=== PATIENT | male | born 1960 | race Caucasian/White ===

== ENCOUNTER → 2017-10-30 | Day surgery (SDC) | payer BC ==
[~2017-10-30] MED LIST: Lactated Ringers 1,000 ML IV SCH
== END ==
LOC: FB.SDS 07:06
PROVIDERS: ATTEND Surgery
DX: Z12.11 Encounter for screening for malignant neoplasm of colon (principal); Z53.8 Procedure and treatment not carried out for other reasons; Z88.8 Allergy status to other drugs, medicaments and biological substances; Z91.040 Latex allergy status

== ENCOUNTER 2017-10-31 06:26 | Day surgery (SDC) | payer BC ==
[2017-10-31] MEDS ORDERED: Lactated Ringers 1,000 ML IV SCH (06:30)
[2017-10-31] MEDS ORDERED: Midazolam 1 MG/ML 2 ML SDV IV ONE (07:20)
[2017-10-31] MEDS ORDERED: Propofol 200 MG/20 ML SDV IV ONE (07:20)
--- NOTE | 2017-10-31 08:00 | PCM.OPNOTE ---
- General Post-Op/Procedure Note Date of Surgery/Procedure: 10/31/17 Operative Procedure(s): c scope Findings: normal exam Pre Op Diagnosis: history of UC Post-Op Diagnosis: Same Anesthesia Technique: MAC Primary Surgeon: Don Ruvalcaba Anesthesia Provider: Kerrie Green Pathology: bx every 10 cm Complications: None Condition: Good Free Text/Narrative:: see dictation
[2017-10-31 08:44] VITALS: BP 115/43
--- NOTE | 2017-10-31 10:13 | OR ---
DATE OF OPERATION: 10/31/2017 SURGEON: Don Ruvalcaba MD PROCEDURE PERFORMED: Colonoscopy with biopsy. PREOPERATIVE DIAGNOSIS: History of ulcerative colitis. POSTOPERATIVE DIAGNOSIS: Grossly normal colon. INDICATIONS FOR PROCEDURE: Mr. De Leon is a 57-year-old white male, who presents for a followup colonoscopy. He has a history of ulcerative colitis, recently had a flare up. This was successfully treated with steroids and the resumption of his azulfidine. He was due for a followup exam to ensure that no polyps have developed. DESCRIPTION OF PROCEDURE: After an excellent IV sedation was administered, digital rectal exam was performed. No marked abnormality was noted. Flexible colonoscope was inserted and advanced to the cecum without difficulty. The prep was good. There were some areas of liquid stool that needed to be irrigated, but we were able to get a good view of the mucosa. The following findings were noted: Ascending colon, unremarkable. Biopsies taken approximately every 10 cm. Transverse colon, unremarkable. Biopsies taken every 10 cm. Descending colon, unremarkable. Biopsies taken every 10 cm. Sigmoid and rectum, biopsies were taken every 10 cm and the mucosa was unremarkable. Specimens were into ascending, transverse, descending, sigmoid, and rectum containers. The patient tolerated the procedure well. Results by letter. /[id number] /ASIAL
== END 2017-10-31 09:05 | disposition home or self-care (01) ==
LOC: FB.SDS 06:26
PROVIDERS: ATTEND Surgery
DX: K52.9 Noninfective gastroenteritis and colitis, unspecified (principal); M10.9 Gout, unspecified; I25.2 Old myocardial infarction; I25.10 Atherosclerotic heart disease of native coronary artery without angina pectoris; I48.91 Unspecified atrial fibrillation; E11.9 Type 2 diabetes mellitus without complications; E78.2 Mixed hyperlipidemia; G47.33 Obstructive sleep apnea (adult) (pediatric); Z87.891 Personal history of nicotine dependence; Z79.899 Other long term (current) drug therapy; Z79.84 Long term (current) use of oral hypoglycemic drugs; Z79.02 Long term (current) use of antithrombotics/antiplatelets; Z79.82 Long term (current) use of aspirin; Z91.040 Latex allergy status; Z88.6 Allergy status to analgesic agent
CPT/HCPCS: 82962; 88305; J2250; J2704; J7120

== ENCOUNTER 2020-01-09 22:57 | Emergency (ER) | payer BC ==
[2020-01-09] MEDS: Sodium Chloride 0.9% 1,000 ML IV SCH (23:10)
--- NOTE | 2020-01-09 23:10 | EDM.PDOC ---
ED HPI GENERAL MEDICAL PROBLEM - General Chief Complaint: Abdominal Pain Stated Complaint: NAUSEA/VOMITING Time Seen by Provider: 01/09/20 23:09 Source of Information: Reports: Patient, EMS Notes Reviewed, RN Notes Reviewed History Limitations: Reports: No Limitations - History of Present Illness INITIAL COMMENTS - FREE TEXT/NARRATIVE: 59 yo gentleman with multiple medical problems as listed in his chart including Oxygen dependent COPD. Presented to the ER with N/V/D and abdominal pain that has been ongoing for the past 2 days and seem to be getting worse. Describes abdominal pain as sharp 5/10 pain constant with no obvious aggravating or reliving factors. C/o associated nausea and vomiting. Vomitus is non bloody, non bilious. No urinary symptoms. Denied any chest pain. Presented to the ER due to worsening symptoms. Onset: Sudden, Other (2 days) Duration: Day(s): (2 days), Getting Worse Location: Reports: Abdomen Quality: Reports: Ache Severity: Moderate Associated Symptoms: Reports: No Other Symptoms Treatments [employer]: Reports: EKG, Other (see below) - Related Data Allergies Allergy/AdvReac Type Severity Reaction Status Date / Time ibuprofen Allergy Hives Verified 10/31/17 07:36 latex AdvReac Rash Verified 10/31/17 07:36 naproxen sodium [From Aleve] AdvReac Rash Verified 10/31/17 07:36 Home Meds: Home Meds Clopidogrel [Plavix] 75 mg PO DAILY 06/10/13 [History] Lisinopril 2.5 mg PO DAILY 06/10/13 [History] Mesalamine [Delzicol] 800 mg PO DAILY 06/10/13 [History] Aspirin [Ecotrin] 325 mg PO DAILY 09/20/13 [History] atorvaSTATin [Lipitor] 80 mg PO BEDTIME 09/21/13 [History] Albuterol [Ventolin HFA] 2 puff IH Q4HR PRN 10/29/17 [History] Beclomethasone Dipropionate [Qvar 40 Mcg] 2 puff IH BID 10/29/17 [History] Cetirizine [ZyrTEC] 10 mg PO DAILY 10/29/17 [History] Metoprolol Succinate [Toprol Xl] 50 mg PO DAILY 10/29/17 [History] SUMAtriptan [Imitrex] 50 mg PO ASDIRECTED 10/29/17 [History] glipiZIDE [Glipizide ER] 10 mg PO DAILY 10/29/17 [History] Past Medical History HEENT History: Reports: Cataract Cardiovascular History: Reports: Afib, CAD, High Cholesterol, Hypertension, NC Respiratory History: Reports: Sleep Apnea Gastrointestinal History: Reports: Inflammatory Bowel Disease Genitourinary History: Reports: None Musculoskeletal History: Reports: Gout Neurological History: Reports: Migraines Psychiatric History: Reports: None Endocrine/Metabolic History: Reports: Diabetes, Type II Hematologic History: Reports: None Immunologic History: Reports: None Oncologic (Cancer) History: Reports: None Dermatologic History: Reports: None - Past Surgical History Cardiovascular Surgical History: Reports: Coronary Artery Bypass GI Surgical History: Reports: Colon, Colonoscopy ED ROS GENERAL - Review of Systems Review Of Systems: See Below Constitutional: Reports: Weakness, Fatigue HEENT: Reports: No Symptoms Respiratory: Reports: Shortness of Breath Cardiovascular: Reports: No Symptoms Endocrine: Reports: Fatigue GI/Abdominal: Reports: Abdominal Pain, Diarrhea, Decreased Appetite, Nausea, Vomiting : Reports: No Symptoms Musculoskeletal: Reports: No Symptoms Skin: Reports: No Symptoms Neurological: Reports: No Symptoms Psychiatric: Reports: No Symptoms Hematologic/Lymphatic: Reports: No Symptoms Immunologic: Reports: No Symptoms ED EXAM, GI/ABD - Physical Exam Exam: See Below Exam Limited By: No Limitations General Appearance: Alert, WD/WN, No Apparent Distress Ears: Normal External Exam, Hearing Grossly Normal Nose: Normal Inspection, Normal Mucosa Throat/Mouth: Normal Inspection, Normal Lips, Normal Teeth, Normal Oropharynx Head: Atraumatic, Normocephalic Neck: Normal Inspection, Supple, Non-Tender Respiratory/Chest: No Respiratory Distress, Lungs Clear, Normal Breath Sounds, No Accessory Muscle Use Cardiovascular: Normal Peripheral Pulses, Regular Rate, Rhythm, No Edema, No Gallop, No JVD GI/Abdominal Exam: Normal Bowel Sounds, Soft, Non-Tender, No Organomegaly, Distended, Tender Back Exam: Normal Inspection, Full Range of Motion Extremities: Normal Inspection, Normal Range of Motion Neurological: Alert, Oriented, CN II-XII Intact, Normal Cognition, Normal Reflexes Psychiatric: Normal Affect Skin Exam: Warm, Dry, Intact Lymphatic: No Adenopathy Course - Orders/Labs/Meds Orders: Active Orders 24 hr Category Date Time Status EKG Documentation Completion [RC] ASDIRECTED Care 01/10/20 00:26 Active Oxygen Therapy, ED [RC] ASDIRECTED Care 01/09/20 23:18 Active Abdomen Pelvis w Cont [CT] Stat Exams 01/09/20 23:12 Taken Chest 1V Frontal [CR] Stat Exams 01/09/20 23:12 Taken CULTURE BLOOD [BC] Stat Lab 01/10/20 00:50 Received CULTURE BLOOD [BC] Stat Lab 01/10/20 00:55 Received UA W/MICROSCOPIC [URIN] Stat Lab 01/09/20 23:11 Ordered Heparin 25,000 Units @ 20MLS/HR Med 01/10/20 01:15 Ordered Heparin Sodium/0.45% NaCl [Heparin 25,000 Units in 1/2 NS 500 ML] 500 ml IV ASDIRECTED Heparin Sodium Med 01/10/20 01:17 Once 4,000 units IVPUSH .BOLUS ONE Piperacillin/Tazobactam [Zosyn] 3.375 gm Med 01/10/20 01:00 Active Sodium Chloride 0.9% [Normal Saline] 50 ml IV .ONCE Sodium Chloride 0.9% [Normal Saline] 1,000 ml Med 01/09/20 23:15 Active IV ASDIRECTED EKG 12 Lead [EK] Routine Ther 01/10/20 00:26 Ordered Medication Orders Sodium Chloride (Normal Saline) 1,000 mls @ 100 mls/hr IV ASDIRECTED MARTITA Last Admin: 01/09/20 23:10 Dose: 100 mls/hr Piperacillin Sod/Tazobactam (Sod 3.375 gm/ Sodium Chloride) 50 mls @ 100 mls/ hr IV .ONCE MARTITA Last Admin: 01/10/20 01:09 Dose: 100 mls/hr Heparin Sodium/Sodium Chloride (Heparin 25,000 Units In 1/2 Ns 500 Ml) 500 mls @ 20 mls/hr IV ASDIRECTED [facility] Labs: Laboratory Tests 01/09/20 01/09/20 01/09/20 Range/Units 23:30 23:30 23:30 WBC 20.3 H (4.5-12.0) X10-3/uL RBC 5.08 (4.30-5.75) x10(6)uL Hgb 15.7 (13.5-17.8) g/dL Hct 47.2 (30.0-51.3) % MCV 92.9 (80-96) fL MCH 30.9 (27.7-33.6) pg MCHC 33.3 (32.2-35.4) g/dL RDW 13.2 (11.5-15.5) % Plt Count 425 H (125-369) X10(3)uL MPV 6.0 L (7.4-10.4) fL Add Manual Diff Yes Neutrophils % (Manual) 66 (46-82) % Band Neutrophils % 6 (0-6) % Lymphocytes % (Manual) 19 (13-37) % Monocytes % (Manual) 7 (4-12) % Eosinophils % (Manual) 2 (0-5) % Sodium 135 (135-145) mmol/L Potassium 4.3 (3.5-5.3) mmol/L Chloride 99 L (100-110) mmol/L Carbon Dioxide 31 (21-32) mmol/L BUN 17 (7-18) mg/dL Creatinine 1.1 (0.70-1.30) mg/dL Est Cr Clr Drug Dosing TNP Estimated GFR (MDRD) > 60 (>60) BUN/Creatinine Ratio 15.5 (9-20) Glucose 263 H (80-116) mg/dL Lactic Acid (0.4-2.0) mmol/L Calcium 9.2 (8.6-10.2) mg/dL Total Bilirubin 1.1 (0.1-1.3) mg/dL AST 27 H (5-25) IU/L ALT 39 H (12-36) U/L Alkaline Phosphatase 89 (56-112) IU/L Troponin I (4.0-60.3) pg/mL C-Reactive Protein 2.2 H (0.5-0.9) mg/dL NT-Pro-B Natriuret Pep (<=125) pg/mL Total Protein 7.9 (6.0-8.0) g/dL Albumin 3.8 (3.5-5.2) g/dL Globulin 4.1 g/dL Albumin/Globulin Ratio 0.9 Lipase 116 (73-393) U/L Ethyl Alcohol (<0.03) % 01/09/20 01/09/20 Range/Units 23:30 23:30 WBC (4.5-12.0) X10-3/uL RBC (4.30-5.75) x10(6)uL Hgb (13.5-17.8) g/dL Hct (30.0-51.3) % MCV (80-96) fL MCH (27.7-33.6) pg MCHC (32.2-35.4) g/dL RDW (11.5-15.5) % Plt Count (125-369) X10(3)uL MPV (7.4-10.4) fL Add Manual Diff Neutrophils % (Manual) (46-82) % Band Neutrophils % (0-6) % Lymphocytes % (Manual) (13-37) % Monocytes % (Manual) (4-12) % Eosinophils % (Manual) (0-5) % Sodium (135-145) mmol/L Potassium (3.5-5.3) mmol/L Chloride (100-110) mmol/L Carbon Dioxide (21-32) mmol/L BUN (7-18) mg/dL Creatinine (0.70-1.30) mg/dL Est Cr Clr Drug Dosing Estimated GFR (MDRD) (>60) BUN/Creatinine Ratio (9-20) Glucose (80-116) mg/dL Lactic Acid 2.2 H* (0.4-2.0) mmol/L Calcium (8.6-10.2) mg/dL Total Bilirubin (0.1-1.3) mg/dL AST (5-25) IU/L ALT (12-36) U/L Alkaline Phosphatase (56-112) IU/L Troponin I 206.2 H* (4.0-60.3) pg/mL C-Reactive Protein (0.5-0.9) mg/dL NT-Pro-B Natriuret Pep 156 H (<=125) pg/mL Total Protein (6.0-8.0) g/dL Albumin (3.5-5.2) g/dL Globulin g/dL Albumin/Globulin Ratio Lipase (73-393) U/L Ethyl Alcohol < 0.03 (<0.03) % Meds: Medications Generic Name Dose Route Start Last Admin Trade Name Freq PRN Reason Stop Dose Admin Sodium Chloride 1,000 mls @ 100 mls/hr 01/09/20 23:15 01/09/20 23:10 Normal Saline IV 100 mls/hr ASDIRECTED MARTITA Administration Piperacillin Sod/Tazobactam 50 mls @ 100 mls/hr 01/10/20 01:00 01/10/20 01:09 Sod 3.375 gm/ Sodium Chloride IV 100 mls/hr .ONCE MARTITA Administration Heparin Sodium/Sodium Chloride 500 mls @ 20 mls/hr 01/10/20 01:15 Heparin 25,000 Units In 1/2 Ns 500 Ml IV ASDIRECTED MARTITA Discontinued Medications Generic Name Dose Route Start Last Admin Trade Name Yoli PRN Reason Stop Dose Admin Aspirin 324 mg 01/10/20 00:30 01/10/20 01:07 Aspirin PO 01/10/20 00:31 324 mg ONETIME ONE Administration Iopamidol 100 ml 01/09/20 23:36 01/10/20 00:07 Isovue-370 (76%) IV 01/09/20 23:37 100 ml . DIRECTED ONE Administration Morphine Sulfate 2 mg 01/09/20 23:15 01/09/20 23:21 Morphine IVPUSH 01/09/20 23:16 2 mg ONETIME ONE Administration Ondansetron HCl 4 mg 01/09/20 23:14 01/09/20 23:16 Zofran IVPUSH 01/09/20 23:15 4 mg ONETIME ONE Administration Departure - Departure Time of Disposition: 00:44 Disposition: DC/Tfer to Other 70 Condition: Fair Clinical Impression: Gastroenteritis, Colitis presumed infectious, Elevated troponin, Lactic acidosis, Non-ST elevation NC (NSTEMI) Abdominal pain Qualifiers: Abdominal location: generalized Qualified Code(s): R10.84 - Generalized abdominal pain - Discharge Information *PRESCRIPTION DRUG MONITORING PROGRAM REVIEWED*: Not Applicable *COPY OF PRESCRIPTION DRUG MONITORING REPORT IN PATIENT RAJINDER: Not Applicable Referrals: Kenyon Fitzpatrick MD [Primary Care Provider] - Forms: ED Department Discharge Additional Instructions: Follow with PCP after discharge from [facility] Sepsis Event Note - Focused Exam Date Exam was Performed: 01/10/20 Time Exam was Performed: 01:18 ED Communication - Discussed Case With (1) Person/s Notified (1): Dr. Zavaleta (accepted patient to [facility]) - Conversation Summary Summary Comment: Accepted by Dr. Zavaleta ([facility]) -- Transported by ambulance to [facility] - Problem List & Annotations (1) Abdominal pain SNOMED Code(s): 21640458 Code(s): R10.9 - UNSPECIFIED ABDOMINAL PAIN Status: Acute Current Visit: Yes Qualifiers: Abdominal location: generalized Qualified Code(s): R10.84 - Generalized abdominal pain (2) Non-ST elevation NC (NSTEMI) SNOMED Code(s): 08272324 Code(s): I21.4 - NON-ST ELEVATION (NSTEMI) MYOCARDIAL INFARCTION Status: Acute Priority: High Current Visit: Yes (3) Colitis presumed infectious SNOMED Code(s): 56700825 Code(s): K52.9 - NONINFECTIVE GASTROENTERITIS AND COLITIS, UNSPECIFIED Status: Acute Current Visit: Yes - My Orders Last 24 Hours: My Active Orders 01/09/20 23:11 UA W/MICROSCOPIC [URIN] Stat 01/09/20 23:12 Abdomen Pelvis w Cont [CT] Stat Chest 1V Frontal [CR] Stat 01/09/20 23:15 Sodium Chloride 0.9% [Normal Saline] 1,000 ml IV ASDIRECTED 01/09/20 23:18 Oxygen Therapy, ED [RC] ASDIRECTED 01/10/20 00:26 EKG Documentation Completion [RC] ASDIRECTED EKG 12 Lead [EK] Routine 01/10/20 00:50 CULTURE BLOOD [BC] Stat 01/10/20 00:55 CULTURE BLOOD [BC] Stat 01/10/20 01:00 Piperacillin/Tazobactam [Zosyn] 3.375 gm Sodium Chloride 0.9% [Normal Saline] 50 ml IV .ONCE 01/10/20 01:15 Heparin 25,000 Units @ 20MLS/HR Heparin Sodium/0.45% NaCl [Heparin 25,000 Units in 1/2 NS 500 ML] 500 ml IV ASDIRECTED 01/10/20 01:17 Heparin Sodium 4,000 units IVPUSH .BOLUS ONE - Assessment/Plan Admission H&P: Please use this note as an admission H&P Last 24 Hours: My Active Orders 01/09/20 23:11 UA W/MICROSCOPIC [URIN] Stat 01/09/20 23:12 Abdomen Pelvis w Cont [CT] Stat Chest 1V Frontal [CR] Stat 01/09/20 23:15 Sodium Chloride 0.9% [Normal Saline] 1,000 ml IV ASDIRECTED 01/09/20 23:18 Oxygen Therapy, ED [RC] ASDIRECTED 01/10/20 00:26 EKG Documentation Completion [RC] ASDIRECTED EKG 12 Lead [EK] Routine 01/10/20 00:50 CULTURE BLOOD [BC] Stat 01/10/20 00:55 CULTURE BLOOD [BC] Stat 01/10/20 01:00 Piperacillin/Tazobactam [Zosyn] 3.375 gm Sodium Chloride 0.9% [Normal Saline] 50 ml IV .ONCE 01/10/20 01:15 Heparin 25,000 Units @ 20MLS/HR Heparin Sodium/0.45% NaCl [Heparin 25,000 Units in 1/2 NS 500 ML] 500 ml IV ASDIRECTED 01/10/20 01:17 Heparin Sodium 4,000 units IVPUSH .BOLUS ONE
[2020-01-09] MEDS: Ondansetron 4 MG/2 ML SDV IVPUSH ONE (23:16)
[2020-01-09] MEDS: Morphine 2 MG/ML Syringe IVPUSH ONE (23:21)
[2020-01-10] MEDS: Iopamidol 755 Mg/ML 100 ML Bottle IV ONE (00:07)
[2020-01-10] MEDS: Aspirin 81 MG Tab.Chew PO ONE (01:07)
[2020-01-10] MEDS: Piperacillin/Tazobactam 3.375 GM in Sodium Chloride 0.9% 50 ML IV SCH (01:09)
[2020-01-10] MEDS: Heparin Sodium 5,000 Units/ML Vial IVPUSH ONE (01:21)
[2020-01-10] MEDS: Heparin Sodium/0.45% NaCl 500 ML IV SCH (01:42)
[2020-01-10 02:50] VITALS: BP 113/48; PULSE 89
== END 2020-01-10 02:00 | disposition other institution (70) ==
LOC: FB.ED 22:57
DX: K52.9 Noninfective gastroenteritis and colitis, unspecified (principal); R79.89 Other specified abnormal findings of blood chemistry; E87.2 Acidosis; I21.4 Non-ST elevation (NSTEMI) myocardial infarction; G43.909 Migraine, unspecified, not intractable, without status migrainosus; M10.9 Gout, unspecified; I48.91 Unspecified atrial fibrillation; I25.10 Atherosclerotic heart disease of native coronary artery without angina pectoris; E78.00 Pure hypercholesterolemia, unspecified; I10 Essential (primary) hypertension; I25.2 Old myocardial infarction; E11.9 Type 2 diabetes mellitus without complications; Z88.6 Allergy status to analgesic agent; Z91.040 Latex allergy status; Z79.02 Long term (current) use of antithrombotics/antiplatelets; Z79.899 Other long term (current) drug therapy; Z79.82 Long term (current) use of aspirin
CPT/HCPCS: 36415; 71045; 74177; 80053; 80307; 82962; 83605; 83690; 83880; 84484; 85025; 86140; 87040; 93005; 96361; 96365; 96375; 96376; 99285; A9270; J1644; J2270; J2405; J2543; J7030; J7050; Q9967